=== PATIENT | male | born 1980 | race Caucasian/White ===

== ENCOUNTER 2024-02-03 00:52 | Emergency (ER) | payer OTHER, SELFPAY ==
[2024-02-03 00:53] VITALS: BP 118/84
--- NOTE | 2024-02-03 01:12 | ED.GENMED ---
History of Present Illness
<Kraig Alvarado MD, Resident - Last Filed: 02/03/24 04:31>
General
Chief Complaint: Abdominal Symptoms
Source: patient
Time Seen by Provider: 02/03/24 01:10
Travel History
Have you traveled to any high risk areas for coronavirus over the past 14 days?: No
Have you had any contact with someone who has COVID-19?: No
Do you have any symptoms of coronavirus? Fever > 100 degrees, chills, cough, shortness of breath, sore throat, loss of taste or smell, muscle aches, or headache?: No
History of Present Illness
History of Present Illness:
Carlos Mulligan, 43-year-old male, has had diarrhea, nausea, vomiting and abdominal cramps since 1600 today. He has been moving his bowels every hour; watery diarrhea without blood. Unclear if he has noted mucus in stool since he is also throwing
up every time he uses the restroom. Experiences chills and sweats when throwing up but no constitutional symptoms outside of that. Unable to tolerate oral intake much. He had pizza and mozzarella sticks at a diner for lunch and steak at a restaurant
for dinner last night. No one else has been sick, so far as he knows.
Past History
<Kraig Alvarado MD, Resident - Last Filed: 02/03/24 04:31>
Past History
ED Past Medical History: None
ED Past Surgical History: Negative None
Review of Systems
<Kraig Alvarado MD, Resident - Last Filed: 02/03/24 04:31>
Review of Systems
All Other Systems: ROS reviewed and negative except as documented in HPI and ROS
Phy Exam
<Kraig Alvarado MD, Resident - Last Filed: 02/03/24 04:31>
General Physical Exam
General Presentation: well appearing and no apparent distress
General Skin: warm and dry
General Habitus: normal
General Mental: alert
General Hydration: appears well hydrated
ENT Exam
ENT Exam: EOMI, pharynx normal, neck supple and normocephalic
Eye Exam
Eye Exam: PERRL, cornea clear and conjunctiva normal
Cardiovascular Exam
Cardiovascular Exam: regular rate/rhythm, no edema, no murmur and normal peripheral pulses
Pulmonary Exam
Pulmonary Exam: lungs clear, no respiratory distress, no rales, no crackles, no rhonchi, no stridor, no wheezing and no cough
Gastrointestinal Exam
Gastrointestinal Exam: soft, no organomegaly, no pulsatile mass, non distended, abnormal bowel sounds (hyperactive) and tender (diffusely; epigastric > rest)
Neurological Exam
Neurological Exam: alert, oriented x3, no motor deficits and speech normal
Musculoskeletal Exam
Musculoskeletal Exam: full ROM and no edema
Skin Exam
Skin Exam: normal color, warm/dry, no rash and no petechia
Psychiatric Exam
Psychiatric Exam: normal mood/affect
Course
<Kraig Alvarado MD, Resident - Last Filed: 02/03/24 04:31>
Orders/Labs/Results
Orders:
Orders
02/03/24 01:07
IV Insert/Care/Rem.- Treatment PRN
02/03/24 01:13
Complete Blood Count/With Diff Urgent
Comprehensive Metabolic Panel Urgent
Lipase Urgent
0.9% Sodium Chloride 1000 ml [Nss] 1,000 ml IV BOLUS
02/03/24 01:58
Ondansetron Injectable [Zofran] 4 mg IV NOW STA
02/03/24 02:07
0.9% Sodium Chloride 1000 ml [Nss] 1,000 ml IV BOLUS
Abnormal Lab Results
02/03/24
01:13
WBC 11.4 H 10^3/uL
(4.8-10.8)
Abs Immat Gran (auto) 0.2 H 10^3/uL
(0-0.05)
Absolute Neuts (auto) 10.4 H 10^3/uL
(1.4-6.5)
Absolute Lymphs (auto) 0.3 L 10^3/uL
(1.2-3.4)
Immature Gran % 1.5 H %
(0-0.5)
Neutrophils % 91.8 H %
(42.2-75.2)
Lymphocytes % 2.2 L %
(20.5-51.1)
BUN 21 H mg/dl
(9-20)
Glucose 151 H mg/dl
(70-99)
ALT 65 H U/L
(0-50)
Albumin 5.3 H g/dl
(3.5-5.0)
02/03/24 01:13
02/03/24 01:13
Vital Signs
Initial and Last Documented VS:
Initial Vital Signs
Temp Pulse Resp BP Pulse Ox
98.1 F 96 26 118/84 99
02/03/24 00:53 02/03/24 00:53 02/03/24 00:53 02/03/24 00:53 02/03/24 00:53
Last Documented Vital Signs
Temp Pulse Resp BP Pulse Ox
98.1 F 96 26 118/84 99
02/03/24 00:53 02/03/24 00:53 02/03/24 00:53 02/03/24 00:53 02/03/24 00:53
<Devin Blank MD - Last Filed: 02/03/24 02:38>
Orders/Labs/Results
Orders:
Orders
02/03/24 01:07
IV Insert/Care/Rem.- Treatment PRN
02/03/24 01:13
Complete Blood Count/With Diff Urgent
Comprehensive Metabolic Panel Urgent
Lipase Urgent
0.9% Sodium Chloride 1000 ml [Nss] 1,000 ml IV BOLUS
02/03/24 01:58
Ondansetron Injectable [Zofran] 4 mg IV NOW STA
02/03/24 02:07
0.9% Sodium Chloride 1000 ml [Nss] 1,000 ml IV BOLUS
Abnormal Lab Results
02/03/24
01:13
WBC 11.4 H 10^3/uL
(4.8-10.8)
Abs Immat Gran (auto) 0.2 H 10^3/uL
(0-0.05)
Absolute Neuts (auto) 10.4 H 10^3/uL
(1.4-6.5)
Absolute Lymphs (auto) 0.3 L 10^3/uL
(1.2-3.4)
Immature Gran % 1.5 H %
(0-0.5)
Neutrophils % 91.8 H %
(42.2-75.2)
Lymphocytes % 2.2 L %
(20.5-51.1)
BUN 21 H mg/dl
(9-20)
Glucose 151 H mg/dl
(70-99)
ALT 65 H U/L
(0-50)
Albumin 5.3 H g/dl
(3.5-5.0)
02/03/24 01:13
02/03/24 01:13
Vital Signs
Initial and Last Documented VS:
Initial Vital Signs
Temp Pulse Resp BP Pulse Ox
98.1 F 96 26 118/84 99
02/03/24 00:53 02/03/24 00:53 02/03/24 00:53 02/03/24 00:53 02/03/24 00:53
Last Documented Vital Signs
Temp Pulse Resp BP Pulse Ox
98.1 F 96 26 118/84 99
02/03/24 00:53 02/03/24 00:53 02/03/24 00:53 02/03/24 00:53 02/03/24 00:53
<Kraig Alvarado MD, Resident - Last Filed: 02/03/24 04:31>
*Critical Care Note
Total Time (30-74mins, 75-104mins- exclusive of procedures): Not Applicable
ED Attending Note
<Kraig Alvarado MD, Resident - Last Filed: 02/03/24 04:31>
-
Portions of this chart may have been created with voice recognition software.� Occasional wrong word or��sound alike� substitutions may have occurred due to the inherent limitations of voice recognition software.
<Devin Blank MD - Last Filed: 02/03/24 02:38>
ED Attending Note
Patient seen and examined by attending physician: Yes
I performed a history and physical exam of patient and discussed management with resident, I reviewed resident's note and agree with documented findings and plan of care.: Yes
ED Attending Note:
I have seen and evaluated the patient with a [id number] encounter. I have spoken to the resident and involved in the medical history, the physical exam, medical decision making.
Evaluation and management service: agree unless noted differently below.
Results interpretation: agree unless noted differently below.
Focused HPI: 43-year-old male with no reported chronic medical issues presents to the emergency room for evaluation of nausea, vomiting, diarrhea. Patient reports onset of symptoms this evening around 4 PM and they have been constant since that
time. He reports essentially hourly episodes of watery diarrhea and nonbloody emesis. He reports that he has associated brief episodes of crampy abdominal pain usually lasting for a minute or 2. He says that symptoms were not improving as the day
went on and so he came to the emergency to be evaluated. He denies any fever or chills. Denies any urinary symptoms. No chest pain. He denies any known sick contacts. Last meal was pizza at lunch and he says that the rest of his family ate the
pizza and no one else was sick.
Physical exam: Awake alert not in distress. Vital signs significant for marginal tachypnea in triage which has normalized by my assessment. His abdomen is soft, nondistended, nontender to deep palpation. Mucous membranes slightly tacky.
Medical Decision Makin-year-old male presents for evaluation of nausea/vomiting/diarrhea with intermittent crampy abdominal pain that started this afternoon. Vitals and exam as above. History and exam most consistent with gastroenteritis. He
has benign abdominal exam only occasional crampy abdominal pain associate with diarrhea and vomiting�in my judgment no indication for emergent abdominal imaging. Will check labs including a CBC and a CMP. Will hydrate and provide antiemetic.
Reassess after the above.
Labs reviewed: CBC shows marginal leukocytosis 11.4. CMP no clinically significant abnormalities. Patient eri awake alert, pain-free. No bowel movement since arrival�will send stool studies if he is able. Continue fluid resuscitation and
reassess. If he remains well-appearing and continues to tolerate p.o. (he is drinking Gatorade) can likely be discharged with supportive care.
Discharge Plan
Departure
Patient Disposition: Home (Routine Discharge)
Date of Disposition: 02/03/24
Time of Disposition: 04:05
Patient with high blood pressure during this ER visit?: No
Discharge Problem:
Gastroenteritis
Instructions: Dehydration, Adult (DC), Nausea and Vomiting, Adult (DC)
Prescriptions:
New
dicyclomine 10 mg capsule
10 mg PO TID PRN (Reason: abdominal pain) Qty: 10 0RF
ondansetron 4 mg tablet,disintegrating
4 mg PO TIDPRN PRN (Reason: nausea/vomiting) Qty: 20 0RF
Referrals:
Daljit Nogueira MD [Family Provider] - Follow up in 2-3 days
Activity Restrictions/Additional Instructions:
Thank you for visiting the Emergency Department at [facility].
1. Please schedule a follow up appointment as directed. Call first thing tomorrow morning to make an appointment.
2. If indicated, please take your medications as instructed and indicated on discharge paperwork.
3. If any of your symptoms do not improve, or persist, or become more severe within 6-12 hours, please return to the emergency department for further care.
4. Please return to the emergency department if you develop a headache, neck pain/stiffness, fever greater than 100.4F, chest pain, shortness of breath, persistent nausea, vomiting, slurred speech, difficulty walking, numbness/tingling, weakness,
signs of infection or any other symptoms that are worrisome to you.
Please call [phone] if you have any questions.
Interventions
Interventions:
*Risk Screen - Suicide Last Done: 02/03/24 00:53
*Neglect/Abuse Screening Last Done: 02/03/24 00:53
ED- Fall Risk Assessment Last Done: 02/03/24 02:21
*ED COVID-19 Vaccine History Last Done: 02/03/24 01:20
ZJ-[id number]-[id number] Assessment Last Done: 02/03/24 02:21
Discharge Date and Time
Print Language: YI
[2024-02-03] MEDS: NSS 1000 IV ×2 (01:13→02:11)
[2024-02-03 01:20] VITALS: BMI 24.5
[2024-02-03 01:28] LABS: % Basophils 0.3 % (0-2); % Eosinophils 0.2 % (0-6); % Immature Granulocytes 1.5 % (0-0.5); % Lymphocytes 2.2 % (20.5-51.1); % Neutrophils 91.8 % (42.2-75.2); Absolute Immature Granulocytes 0.2 10^3/uL (0-0.05); Absolute Lymphocytes 0.3 10^3/uL (1.2-3.4); Absolute Monocytes 0.5 10^3/uL (0.1-0.6); Absolute Neutrophils 10.4 10^3/uL (1.4-6.5); Hematocrit 44.9 % (39.0-52.0); Hemoglobin 15.7 g/dL (13.0-18.0); Mean Corpuscular Hgb 30.2 pg (27.0-31.0); Mean Corpuscular Volume 86.3 fL (80.0-94.0); Mean Platelet Volume 8.8 fL (7.4-10.4); Nucleated Red Blood Cells % 0 % (-); Platelet Count 223 10^3/uL (130-400); White Blood Cell Count 11.4 10^3/uL (4.8-10.8)
[2024-02-03 01:39] LABS: ALT (SGPT) 65 U/L (0-50); AST (SGOT) 45 U/L (17-59); Albumin 5.3 g/dl (3.5-5.0); Alkaline Phosphatase 59 U/L (38-126); Blood Urea Nitrogen 21 mg/dl (9-20); Calcium 9.9 mg/dl (8.4-10.2); Carbon Dioxide 22 mmol/L (22-30); Chloride 103 mmol/L (98-107); Estimated Creatinine Clearance 95 ml/min; Glucose 151 mg/dl (70-99); Potassium 4.7 mmol/L (3.5-5.1); Sodium 143 mmol/L (135-145); Total Bilirubin 1.3 mg/dl (0.2-1.3); eGFR > 60.00
[2024-02-03 01:56] LABS: Lipase 78 U/L (23-300)
[2024-02-03] MEDS: ZOFRAN 4 MG IV (02:11)
--- NOTE | 2024-02-03 03:02 | EDRN ---
Patient reports feeling a little better, able to keep his gatorade down and hasn't had any diarrhea.
== END 2024-02-03 04:36 | disposition home or self-care (01) ==
LOC: EMR 00:52
PROVIDERS: EMERGENCY PHYSICIAN Emergency Medicine; FAMILY PHYSICIAN Family Medicine
DX: K52.9 Noninfective gastroenteritis and colitis, unspecified (principal)
CPT/HCPCS: 99284; 96374; 96361 ×2; 80053; 83690; 85025